=== PATIENT | male | born 1955 | race Caucasian/White ===

== ENCOUNTER 2020-09-28 09:30 | Outpatient (CLI) | payer MEDICARE ==
[2020-09-28 10:28] LABS: BASOPHILS % (AUTO) 0 % (0-1); EOSINOPHILS % (AUTO) 2 % (1-7); LYMPHOCYTES % (AUTO) 28 % (22-44); MEAN CORPUSCULAR HEMOGLOBIN 34.9 pg (27.5-34.5); MEAN CORPUSCULAR HGB CONC 35.4 g/dL (33.2-36.2); MEAN PLATELET VOLUME 8.7 fL (7.4-10.4); MONOCYTES % (AUTO) 10 % (2-9); NEUTROPHILS % (AUTO) 61 % (42-75); PLATELET COUNT 148 x10^3/uL (130-400); RED BLOOD COUNT 4.56 x10^6/uL (4.38-5.82); RED CELL DISTRIBUTION WIDTH 13.7 % (9.4-14.8)
[2020-09-28 10:30] LABS: MD NO
[2020-09-28 10:35] LABS: ANION GAP 7 mmol/L (5-15); CALCIUM 9.3 mg/dL (8.5-10.1); CHLORIDE 105 mmol/L (98-107)
[2020-10-25] MEDS ORDERED: CLOP75TA52 PO (15:37)
== END 2020-09-28 23:59 | disposition home or self-care (01) ==
LOC: STAR 09:30
PROVIDERS: ATTEND Surgery Vascular Surgery
DX: Z01.818 Encounter for other preprocedural examination (principal)
CPT/HCPCS: 36415; 80048; 85025

== ENCOUNTER 2020-10-03 05:59 | Day surgery (SDC) | payer MEDICARE ==
[~2020-10-03] VITALS: Ht 175.3 cm; Wt 76.9 kg
[2020-10-03 06:29] VITALS: BP 140/80
[2020-10-03] MEDS ORDERED: ALLERGY MEDICATION PO (06:29)
[2020-10-03] MEDS ORDERED: ASPI81TA45 PO (06:29)
[2020-10-03] MEDS ORDERED: MIDAZOLAM 1 MG/ML, 5ML ONE (07:22)
[2020-10-03] MEDS ORDERED: NALOXONE 1 MG/ML, 2ML ONE (07:22)
[2020-10-03] MEDS ORDERED: FLUMAZENIL 0.1 MG/1 ML, 5ML ONE (07:22)
[2020-10-03] MEDS ORDERED: LIDOCAINE 1%, 10ML ONE ×2 (07:22→07:51)
[2020-10-03] MEDS ORDERED: HEPARIN 1,000 UNITS/ML, 10ML ONE (07:22)
[2020-10-03] MEDS ORDERED: PROTAMINE SULFATE 10 MG/ML, 25ML ONE (07:22)
[2020-10-03] MEDS ORDERED: FENTANYL PF 100 MCG/2ML ONE (07:22)
[2020-10-03] MEDS ORDERED: CLOPIDOGREL 75 MG TABLET PO SCH (09:00)
[2020-10-03] MEDS ORDERED: VISIPAQUE 270 MG/ML, 150ML BOTTLE ONE (10:42)
== END 2020-10-03 12:12 | disposition home or self-care (01) ==
LOC: OUT 05:59
PROVIDERS: ATTEND Surgery Vascular Surgery
DX: I70.213 Atherosclerosis of native arteries of extremities with intermittent claudication, bilateral legs (principal); Z79.899 Other long term (current) drug therapy; Z88.0 Allergy status to penicillin
CPT/HCPCS: 37221; 75630; 99156; 99157; C1751; C1760; C1769; C1876; C1894; J1644; J2250; J2720; J3010; Q9966; 75625; 75716; 76937; J2310

== ENCOUNTER → 2020-10-25 | Outpatient (CLI) | payer MEDICARE ==
[~2020-10-25] MED LIST: ALLERGY MEDICATION PO; ASPI81TA45 PO; CLOP75TA52 PO
[2020-10-25 15:46] LABS: BASOPHILS % (AUTO) 1 % (0-1); EOSINOPHILS % (AUTO) 1 % (1-7); LYMPHOCYTES % (AUTO) 14 % (22-44); MEAN CORPUSCULAR HEMOGLOBIN 34.6 pg (27.5-34.5); MEAN PLATELET VOLUME 8.8 fL (7.4-10.4); MONOCYTES % (AUTO) 7 % (2-9); NEUTROPHILS % (AUTO) 78 % (42-75); PLATELET COUNT 135 x10^3/uL (130-400); RED BLOOD COUNT 4.41 x10^6/uL (4.38-5.82); RED CELL DISTRIBUTION WIDTH 14.2 % (9.4-14.8)
[2020-10-25 15:48] LABS: MD NO
[2020-10-25 15:54] LABS: ALANINE AMINOTRANSFERASE 31 U/L (12-78); ALBUMIN 3.9 g/dL (3.4-5.0); ANION GAP 5 mmol/L (5-15); CHLORIDE 105 mmol/L (98-107)
[2020-10-25 15:57] LABS: ALKALINE PHOSPHATASE 93 U/L (45-117); BILIRUBIN,TOTAL 0.5 mg/dL (0.2-1.0); CREATININE 0.81 mg/dL (0.7-1.3); TOTAL PROTEIN 6.9 g/dL (6.4-8.2)
== END | disposition home or self-care (01) ==
LOC: STAR 14:50
PROVIDERS: ATTEND Family Medicine
DX: Z01.812 Encounter for preprocedural laboratory examination (principal); Z20.828 Contact with and (suspected) exposure to other viral communicable diseases; I44.4 Left anterior fascicular block
CPT/HCPCS: 80053; 85025; 87635; 93005